=== PATIENT | female | born 1975 | race Caucasian/White ===

== ENCOUNTER → 2017-03-18 08:22 | Outpatient (CLI) | payer MEDICAID ==
[2013-12-27 08:46] VITALS: BMI 19.2
--- NOTE | ~2017-03-18 | EMG ---
PATIENT:MANAS FOLEY DATE OF SERVICE: 03/18/17 MEDICAL RECORD: [id number] DATE OF : 75 LOCATION: [facility] ADMISSION DATE: REFERRING PHYSICIAN: BAUTISTA ESPANA DO INTERPRETING PHYSICIAN: THIERRY ANNE MD DATE OF SERVICE: 03/19/2017 Referred by myself as an outpatient DATE OF EXAMINATION: 03/18/2017 ELECTROMYOGRAPHIC DATA: Electromyographic examination is limited to both upper extremities. In the right upper extremity, right median motor stimulation elicits a compound motor action potential with a distal latency of 3.6 milliseconds, peak amplitude of 17 millivolts, and calculated conduction velocity of 49 meters per second. Right ulnar motor stimulation elicits a compound motor action potential with a distal latency of 2.8 milliseconds, peak amplitude of 10 millivolts and calculated conduction velocity of 51 meters per second. Right ulnar motor stimulation across the elbow fails to elicit evidence of conduction block at this level. Antidromic right median sensory stimulation elicits a response with a distal latency of 3.7 milliseconds, amplitude of 20 microvolts and calculated conduction velocity of 49 meters per second. Antidromic right ulnar sensory stimulation elicits a response with a distal latency of 3.8 milliseconds, amplitude of 12 microvolts and calculated conduction velocity of 59 meters per second. The right median F wave has a latency of 30 milliseconds. In the left upper extremity, left median motor stimulation elicits a compound motor action potential with a distal latency of 3.3 milliseconds, peak amplitude of 15 millivolts, and calculated conduction velocity of 44 meters per second. Left ulnar motor stimulation elicits a compound motor action potential with a distal latency of 2.9 milliseconds, peak amplitude of 11 millivolts and calculated conduction velocity of 57 meters per second. Left ulnar motor stimulation across the elbow fails to elicit evidence of conduction block at this level. Antidromic left median sensory stimulation elicits a response with a distal latency of 3.4 milliseconds, amplitude of 20 microvolts and calculated conduction velocity of 54 meters per second. Antidromic left ulnar sensory stimulation elicits a response with a distal latency of 3.5 milliseconds, amplitude of 20 microvolts and calculated conduction velocity of 55 meters per second. The left median F wave has a latency of 29 milliseconds. Needle electrode examination is limited to both upper extremities as well. Muscles interrogated include the abductor pollicis brevis, first dorsal interosseous, abductor digiti minimi, pronator teres, biceps brachii, triceps and deltoid. There is no abnormality of insertional activity and no abnormal spontaneous activity is seen in all muscles interrogated. Motor unit potential morphology and the pattern of motor unit potential firing and recruitment is normal in all muscles sampled. INTERPRETATION: Electromyographic examination of both upper extremities is normal. There is no electrical evidence of a cervical radiculopathy or other lesion of the lower motor neuron in the upper extremities at this time. There is no evidence of active denervation. ELECTROMYGRAM/NERVE CONDUCTION [id number] MANAS FOLEY TRANSINT:[id number] Voice Confirmation ID: [id number] DOCUMENT ID: [id number] THIERRY ANNE MD CC: [id number] DICTATION DATE: 03/19/17830 [employer] RELATIONS: 03/19/17855 DEP CLI 03/18/17 [facility] [id number] [place] [address]
[~2017-03-18 08:22] MED LIST: HYDRALAZINE HCL25 MG PO; NEURONTIN600 MG PO; RESTORIL15 MG PO; SOMA350 MG PO; TOPAMAX100 MG PO
== END | disposition home or self-care (01) ==
LOC: D.CN 03-03 09:00
DX: R29.898 Other symptoms and signs involving the musculoskeletal system (principal)

== ENCOUNTER → 2017-03-21 08:05 | Outpatient (CLI) | payer MEDICAID ==
[2013-12-27 08:46] VITALS: BMI 19.2
--- NOTE | ~2017-03-21 | EMG ---
PATIENT:MANAS FOLEY DATE OF SERVICE: 03/21/17 MEDICAL RECORD: [id number] DATE OF : 75 LOCATION: [facility] ADMISSION DATE: REFERRING PHYSICIAN: BAUTISTA BOLIVAR DO INTERPRETING PHYSICIAN: THIERRY ANNE MD DATE OF SERVICE: 03/21/2017 REFERRED BY: Dr. Bolivar as an outpatient. ELECTROMYOGRAPHIC DATA: Electromyographic examination is limited to both lower extremities. In the right lower extremity, right peroneal motor stimulation elicits a compound motor action potential with a distal latency of 5.4 milliseconds, peak amplitude of 5 millivolts, and calculated conduction velocity of 41 meters per second. Right tibial motor stimulation elicits a compound motor action potential with a distal latency of 5.4 milliseconds, peak amplitude of 11 millivolts and calculated conduction velocity of 39 meters per second. Antidromic right sural sensory stimulation elicits a response with a distal latency of 3.7 milliseconds, amplitude of 9 microvolts and calculated conduction velocity of 34 meters per second. The right lower extremity H reflex recording at gastrocsoleus has a latency of 35 milliseconds. In the left lower extremity, left peroneal motor stimulation elicits a compound motor action potential with a distal latency of 4.5 milliseconds, peak amplitude of 6 millivolts, and calculated conduction velocity of 34 meters per second. Left tibial motor stimulation elicits a compound motor action potential with a distal latency of 5.9 milliseconds, peak amplitude of 11 millivolts and calculated conduction velocity of 26 meters per second. Antidromic left sural sensory stimulation elicits a response with a distal latency of 3.7 milliseconds, amplitude of 8 microvolts and calculated conduction velocity of 30 meters per second. The left lower extremity H reflex recording at gastrocsoleus has a latency of 35 milliseconds. Needle electrode examination is limited to both lower extremities as well. Muscles interrogated include the abductor hallucis, extensor digitorum brevis, abductor digiti quinti, tibialis anterior, medial gastrocnemius, vastus lateralis, semitendinosis and gluteus jaren. There is no abnormality of insertional activity and no abnormal spontaneous activity is seen in all muscles interrogated. Motor unit potential morphology and the pattern of motor unit potential firing and recruitment is normal in all muscles sampled. INTERPRETATION: Electromyographic examination of both lower extremities is indicative of a diffuse disorder of the lower motor neuron in both lower extremities, mild to moderate in degree electrically, consistent with the diagnosis of a sensory motor peripheral polyneuropathy. There is no electrical evidence of a superimposed lumbosacral radiculopathy or other lesion of the lower motor neuron in the lower extremities at this time. There is no evidence of active denervation. TRANSINT:[id number] Voice Confirmation ID: [id number] DOCUMENT ID: [id number] ELECTROMYGRAM/NERVE CONDUCTION [id number] MANAS FOLEY DONALD P MD CC: [id number] DICTATION DATE: 03/23/17637 SALES ENABLEMENT MANAGER: 03/23/172049 DEP CLI 03/21/17 [facility] [address] [place] [address]
== END | disposition home or self-care (01) ==
LOC: D.CN 03-07 09:00
DX: R29.898 Other symptoms and signs involving the musculoskeletal system (principal)

== ENCOUNTER → 2017-03-26 16:53 | Outpatient (CLI) | payer MEDICAID ==
[2013-12-27 08:46] VITALS: BMI 19.2
[2017-03-26 17:57] LABS: T4 THYROXIN - FREE 1.02 ng/dL (0.76-1.46); THYROID STIMULATING HORMONE 1.34 uIU/mL (0.36-3.74)
== END | disposition home or self-care (01) ==
LOC: D.LAB 16:53
PROVIDERS: Internal Medicine Gastroenterology
DX: Z48.89 Encounter for other specified surgical aftercare (principal)

== ENCOUNTER → 2017-04-03 12:13 | Outpatient (CLI) | payer MEDICAID ==
[2013-12-27 08:46] VITALS: BMI 19.2
== END | disposition home or self-care (01) ==
LOC: D.CT 12:13
DX: R10.9 Unspecified abdominal pain (principal)